=== PATIENT | male | born 1990 | race Caucasian/White ===

== ENCOUNTER 2019-03-17 19:35 | Emergency (ER) | payer OTHER ==
[2019-03-17] MEDS ORDERED: CEPHALEXIN 250 MG CAPSULE PO ONE (19:55)
--- NOTE | 2019-03-17 20:06 | ED Physician Documentation ---
Skin Rash - HISTORIAN Historian: patient - HPI Chief Complaint: Skin Rash Additional Information: Patient is a 28-year-old male who c/o rash to abdomen (several scabbed sores)- he states that he has a history of abscesses (no hx of lancing). He also has p soriasis. Discussed following up with dermatology and PCP- discussed washing with antibaterial soap. Onset: days ago Timing: still present Duration: intermittent pain Location: trunk Quality: painful Identified Cause?: Yes (family hx of staff) Where: home Context: Medication Exposure: none Context: Food Exposure: none Context: Other Exposure: denies: infectious illness Further Comments: no - ROS CONST: none CVS/RESP: none EYES/ENT: none GI/: none MS/SKIN/LYMPH: none NEURO/PSYCH: none - PAST HX Past History: other (Psoriasis) Other History: none Surgeries/Procedures: No Immunizations: UTD Allergies/Adverse Reactions: Allergies Allergy/AdvReac Type Severity Reaction Status Date / Time No Known Allergies Allergy Verified 03/17/19 20:38 Home Medications: Ambulatory Orders Medication Instructions Recorded NK 03/17/19 - SOCIAL HX Smoking History: less than 1 pack/day Alcohol Use: rarely Drug Use: none - FAMILY HX Family History: none - VITAL SIGNS Vital Signs: Vital Signs Temp Pulse Resp BP Pulse Ox 97.8 F 85 16 142/72 97 03/17/19 20:10 03/17/19 20:10 03/17/19 20:10 03/17/19 20:10 03/17/19 20:10 - REVIEWED ASSESSMENTS Nursing Assessment Reviewed: Yes Vitals Reviewed: Yes ED Results Lab/Radiology - Orders Orders: ED Orders Category Date Time Status Cephalexin [Keflex] Med 03/17/19 19:55 Discontinued 1,000 mg PO NOW ONE Chem Sticks Med 03/18/19 19:56 Discontinued 1 each MC NOW ONE Skin Rash Physical Exam - EXAM General Appearance: no acute distress, alert Skin: warm,dry, abscess (dry crusted to the abdomen) Location: abdomen Character: symmetric Symptoms: warmth, tenderness, swelling Extremities: non-tender, nml ROM EENT: eyes nml inspection, lips nml, gums nml, pharynx nml Neck: trachea midline Respiratory: breath sounds normal CVS: heart sounds nml Abdomen: nml bowel sounds Neuro/Psych: oriented x3, CN's nml as tested, motor nml, sensation nml, mood/affect nml Discharge Clincal Impression: Abscess Referrals: Primary Doctor,No [Primary Care Provider] - 2 Days Additional Instructions: Take Cephalexin 500 mg by mouth every 6 hours for 10 days Shower with antibacterial soap Good handwashing Warm moist packs to affected areas Follow up with PCP for referral to dermatology Condition: Good Disposition: 01 HOME, SELF-CARE Decision to Admit: NO Decision Time: 05:00
[2019-03-17 20:36] VITALS: BP 142/72
== END 2019-03-17 20:10 | disposition home or self-care (01) ==
LOC: ED 19:35
DX: L02.211 Cutaneous abscess of abdominal wall (principal)
CPT/HCPCS: 99283